=== PATIENT | female | born 1965 | race Caucasian/White ===

== ENCOUNTER 2023-01-22 15:23 | Outpatient (CLI) | payer OTHER | END 2023-01-22 15:24 | disposition home or self-care (01) | LOC: BICULT 15:23 | PROVIDERS: ATTEND Family Medicine | DX: E04.9 Nontoxic goiter, unspecified (principal) | CPT/HCPCS: 76536 ==

== ENCOUNTER 2024-02-20 14:26 | Outpatient (CLI) | payer OTHER | END 2024-02-20 14:27 | disposition home or self-care (01) | LOC: BICMAMMO 14:26 | PROVIDERS: ATTEND Family Medicine | DX: N63.22 Unspecified lump in the left breast, upper inner quadrant (principal); E04.1 Nontoxic single thyroid nodule | CPT/HCPCS: 76536; 77066; G0279 ==

== ENCOUNTER 2024-03-27 08:11 | Outpatient (CLI) | payer OTHER ==
[2024-03-27] MEDS ORDERED: Iopamidol 370 76% 100 ML VIAL ONE (12:09)
== END 2024-03-27 08:12 | disposition home or self-care (01) ==
LOC: CT 08:11
PROVIDERS: ATTEND Internal Medicine Hematology & Oncology
DX: C50.812 Malignant neoplasm of overlapping sites of left female breast (principal); N28.89 Other specified disorders of kidney and ureter; R91.1 Solitary pulmonary nodule; C77.3 Secondary and unspecified malignant neoplasm of axilla and upper limb lymph nodes
CPT/HCPCS: 71260; 74177; 78306; A9503; Q9967

== ENCOUNTER 2024-05-14 08:40 | Day surgery (SDC) | payer BC ==
[2024-05-14] MEDS ORDERED: Dexamethasone 10 MG in Sodium Chloride 0.9% 50 ML IVPB SCH (09:00)
[2024-05-14] MEDS ORDERED: diphenhydrAMINE 25 MG in Sodium Chloride 0.9% 50 ML IVPB SCH (09:00)
[2024-05-14] MEDS ORDERED: diphenhydrAMINE 50 MG/ML VIAL ONE (10:32)
[2024-05-14] MEDS ORDERED: PALONOSETRON HCL 0.05 MG/ML 5 ML VIAL ONE (10:32)
[2024-05-14] MEDS ORDERED: Dexamethasone 10 MG/ML VIAL ONE (10:32)
[2024-05-14] MEDS: PALONOSETRON HCL 0.05 MG/ML 5 ML VIAL IVP SCH (10:33)
[2024-05-14] MEDS: diphenhydrAMINE 50 MG/ML VIAL IVP SCH (10:34)
[2024-05-14] MEDS: Dexamethasone 10 MG/ML VIAL SLOW IVP SCH (10:34)
[2024-05-14] MEDS: Pertuzumab 840 MG in Sodium Chloride 0.9% 250 ML 250 ML IVPB SCH (11:02)
[2024-05-14] MEDS: TRASTUZUMAB ANNS IVPB SCH (11:03)
[2024-05-14] MEDS: SODIUM CHLORIDE 0.9% IVPB SCH ×3 (11:03→11:05)
[2024-05-14] MEDS: DOCETAXEL IVPB SCH (11:04)
[2024-05-14] MEDS: CARBOPLATIN IVPB SCH (11:05)
[2024-05-14] MEDS ORDERED: Acetaminophen 500 MG TAB ONE (13:46)
[2024-05-14] MEDS: Acetaminophen 500 MG TAB PO SCH (14:09)
[2024-05-14] MEDS: Prochlorperazine 10 MG/2 ML VIAL IVP SCH (14:17)
[2024-05-14 17:45] VITALS: BP 136/77; TEMP 98.1
== END 2024-05-14 17:42 | disposition home or self-care (01) ==
LOC: ONC/OP 08:40
PROVIDERS: ATTEND Internal Medicine Hematology & Oncology
DX: C50.812 Malignant neoplasm of overlapping sites of left female breast (principal)
CPT/HCPCS: 96367; 96413; 96415; 96417; J0780; J1100; J1200; J1642; J2469; J7050; J9045; J9171; J9306; Q5117

== ENCOUNTER 2024-06-04 08:50 | Day surgery (SDC) | payer BC ==
[2024-06-04] MEDS ORDERED: SODIUM CHLORIDE 0.9% IVPB SCH (09:00)
[2024-06-04] MEDS ORDERED: TRASTUZUMAB ANNS IVPB SCH (09:00)
[2024-06-04 10:04] VITALS: BP 103/62; TEMP 98.1
[2024-06-04] MEDS ORDERED: Dexamethasone 10 MG/ML VIAL ONE (10:26)
[2024-06-04] MEDS ORDERED: PALONOSETRON HCL 0.05 MG/ML 5 ML VIAL ONE (10:26)
[2024-06-04] MEDS: PALONOSETRON HCL 0.05 MG/ML 5 ML VIAL IVP SCH (11:09)
[2024-06-04] MEDS: Dexamethasone 10 MG/ML VIAL SLOW IVP SCH (11:10)
[2024-06-04] MEDS: Pertuzumab 420 MG in Sodium Chloride 0.9% 250 ML 250 ML IVPB SCH (11:23)
[2024-06-04] MEDS: TRASTUZUMAB ANNS IVPB SCH (11:24)
[2024-06-04] MEDS: SODIUM CHLORIDE 0.9% IVPB SCH ×3 (11:24→13:00)
[2024-06-04] MEDS: DOCETAXEL IVPB SCH (12:59)
[2024-06-04] MEDS: CARBOPLATIN IVPB SCH (13:00)
== END 2024-06-04 15:17 | disposition home or self-care (01) ==
LOC: ONC/OP 08:50
PROVIDERS: ATTEND Internal Medicine Hematology & Oncology
DX: C50.812 Malignant neoplasm of overlapping sites of left female breast (principal)
CPT/HCPCS: 96375; 96413; 96417; J1100; J1642; J2469; J7050; J9045; J9171; J9306; Q5117